=== PATIENT | female | born 1975 | race Caucasian/White ===

== ENCOUNTER 2016-11-17 14:37 | Emergency (ER) | payer OTHER ==
[~2016-11-17] VITALS: Ht 152.4 cm; Wt 86.2 kg
--- NOTE | ~2016-11-17 | EKG ---
[address] [address] ELECTROCARDIOGRAM REPORT Name: KELSEY FRASER Room #: DEP [facility] [id number] Admission: 11/17/16 Attend Phys: Discharge: 11/17/16 Date of : 79 Report #: [id number] THIS REPORT FOR: //name// [facility] ED Test Date: 2016-11-17 Test Time: 14:48:55 Pat Name: KELSEY FRASER Department: Room: Gender: [employer]: STORM : 1975 Requested By: Danyel Khan Order Number: [id number] MD: Ernst Nguyen Measurements Intervals [place] Rate: 81 P: 64 [place]: 161 QRS: 41 QRSD: 95 T: 37 QT: 371 QTc: 431 Interpretive Statements Sinus rhythm No previous ECG available for comparison Electronically Signed On 11-18-2016 13:29:41 CDT by Ernst Nguyen [email or web address] <ELECTRONICALLY SIGNED> By: Ernst Nguyen MD 11/18/16 1329 [id number] 1448 MD SERGIO Baldwin
[2016-11-17 15:18] LABS: ABSOLUTE NEUTROPHILS 8.5 thou/uL (1.4-8.2); BASOPHILS 0.7 % (0.0-2.0); EOSINOPHILS 0.8 % (0.0-3.0); HEMATOCRIT 39.2 % (37.0-47.0); HEMOGLOBIN 13.4 gm/dL (12.0-15.0); LYMPHOCYTES 14.6 % (24.0-44.0); MCHC 34.2 g/dL (28.0-37.0); MONOCYTES 6.6 % (1.0-8.0); PLATELET COUNT 397 thou/uL (150-400); POLYS 77.3 % (36.0-66.0); RBC 4.78 mil/uL (4.20-5.00); RDW 13.7 % (10.5-14.5)
[2016-11-17 15:19] LABS: MANUAL DIFF NO
[2016-11-17 15:25] LABS: ANION GAP 10 mmol/L (7-16); BUN 11 mg/dL (7-18); CALCIUM 8.9 mg/dL (8.5-10.1); CHLORIDE 102 mmol/L (98-107); CO2 23 mmol/L (21-32); CREATININE 0.8 mg/dL (0.6-1.3); GLUCOSE 95 mg/dL (70-99); POTASSIUM 3.9 mmol/L (3.5-5.1); SODIUM 135 mmol/L (136-145)
[2016-11-17 15:33] LABS: TROPONIN-I < 0.04 ng/mL (<0.04-0.07)
[2016-11-17 17:04] VITALS: BP 152/68
== END 2016-11-17 17:04 | disposition home or self-care (01) ==
LOC: ER 14:37
PROVIDERS: Emergency Medicine
DX: R07.89 Other chest pain (principal); K50.90 Crohn's disease, unspecified, without complications; F31.9 Bipolar disorder, unspecified; R01.1 Cardiac murmur, unspecified; E66.9 Obesity, unspecified